=== PATIENT | female | born 1960 | race Caucasian/White ===

== ENCOUNTER 2019-05-11 13:55 | Emergency (ER) | payer MEDICARE, OTHER ==
[~2019-05-11] VITALS: Ht 160 cm; Wt 77.6 kg
[~2019-05-11 13:55] MED LIST: ALBU90OI; ALBU90OI INH; Bactrim Ds Tab1 EACH PO; DOXY100 PO; HYDACE5 PO; HYDGUAL120 PO; LEVSOD100; METPRE4DP PO; MULVITMINE; Norco 5-325 Ta1 EACH PO; OMEP20ER; PRAV20; PROM25 PO; Permethrin60 GM TP; RXHYDGUAS PO; RXSULTRIDS PO; SULTRIDS PO; THEO200ERB; ZINC50TA2; Zofran Odt4 MG SL; Zofran4 MG PO
[2019-05-11 15:11] LABS: BASOPHILS ABSOLUTE AUTO 0.05 K/mm3 (0.00-0.23); BASOPHILS PERCENT AUTO 0 % (0-2); EOSINOPHILS ABSOLUTE AUTO 0.37 K/mm3 (0.00-0.68); EOSINOPHILS PERCENT AUTO 3 % (0-6); Hematocrit 47.4 % (33.0-51.0); Hemoglobin 15.3 g/dL (11.5-16.0); IMMATURE GRAN ABSOLUTE AUTO 0.02 K/mm3 (0.00-0.10); IMMATURE GRAN PERCENT AUTO 0 % (0-1); LYMPHOCYTES ABSOLUTE AUTO 3.82 K/mm3 (0.84-5.20); LYMPHOCYTES PERCENT AUTO 32 % (21-46); MONOCYTES ABSOLUTE AUTO 0.64 K/mm3 (0.16-1.47); MONOCYTES PERCENT AUTO 5 % (4-13); Mean Corpuscular HGB 29.3 pg (26.0-34.0); Mean Corpuscular HGB Conc 32.3 g/dL (31.5-36.5); Mean Corpuscular Volume 91 fL (80-100); Mean Platelet Volume 11.9 fL (9.1-12.4); NEUTROPHILS ABSOLUTE AUTO 7.18 K/mm3 (1.96-9.15); NEUTROPHILS PERCENT AUTO 59 % (41-73); Platelet Count 206 K/mm3 (150-400); RDW Standard Deviation 43.8 fL (35.1-46.3); Red Blood Cell Count 5.23 M/mm3 (3.80-5.20); White Blood Cell Count 12.08 K/mm3 (4.00-11.30)
[2019-05-11 15:34] LABS: Alanine Aminotransfer (ALT/SGP 14 U/L (12-78); Albumin, Blood 4.1 g/dL (3.4-5.0); Albumin/Globulin Ratio 1.1 (0.8-1.8); Alk Phos 97 U/L (50-136); Anion Gap 5 mmol/L (6-16); Aspartate Aminotrans (AST/SGOT 14 U/L (12-37); Bilirubin, Total 0.4 mg/dL (0.1-1.0); Blood Urea Nitrogen 16 mg/dL (8-24); Bun/Creatinine Ratio 19.7 (12.0-20.0); CO2, Blood 27 mmol/L (21-32); Calcium, Blood 9.3 mg/dL (8.5-10.1); Chloride, Blood 110 mmol/L (98-108); Creatinine, Blood 0.81 mg/dL (0.40-1.00); Globulin, Blood 3.7 g/dL (2.2-4.0); Glomerular Filtration Rate >60 (60-); Glucose, Blood 101 mg/dL (70-99); Sodium, Blood 142 mmol/L (136-145); Total Protein, Blood 7.8 g/dL (6.4-8.2); Troponin I <0.015 ng/mL (0.000-0.040)
[2019-05-11] MEDS ORDERED: TELM40 PO (17:17)
[2019-05-13] MEDS ORDERED: MOTION RELIEF25 MG PO (15:15)
== END 2019-05-11 17:37 | disposition home or self-care (01) ==
LOC: ER 13:55
PROVIDERS: Physician Assistant
DX: I10 Essential (primary) hypertension (principal); R55 Syncope and collapse; E11.9 Type 2 diabetes mellitus without complications; Z88.0 Allergy status to penicillin; Z88.1 Allergy status to other antibiotic agents; Z88.5 Allergy status to narcotic agent; Z79.899 Other long term (current) drug therapy
CPT/HCPCS: 36415; 71046; 80053; 84484; 85025; 93005; 93010; 96361; 96374; 99284-25; J7030

== ENCOUNTER 2019-07-14 11:01 | Inpatient (IN) | payer MEDICARE, OTHER ==
[~2019-07-14] VITALS: Ht 160 cm; Wt 73.0 kg
[~2019-07-14 11:01] MED LIST changes: +MOTION RELIEF25 MG PO; +TELM40 PO
[2019-07-14 11:44] LABS: BASOPHILS ABSOLUTE AUTO 0.05 K/mm3 (0.00-0.23); BASOPHILS PERCENT AUTO 0 % (0-2); EOSINOPHILS ABSOLUTE AUTO 0.17 K/mm3 (0.00-0.68); EOSINOPHILS PERCENT AUTO 1 % (0-6); Hematocrit 47.7 % (33.0-51.0); Hemoglobin 15.7 g/dL (11.5-16.0); IMMATURE GRAN ABSOLUTE AUTO 0.04 K/mm3 (0.00-0.10); IMMATURE GRAN PERCENT AUTO 0 % (0-1); LYMPHOCYTES ABSOLUTE AUTO 3.27 K/mm3 (0.84-5.20); LYMPHOCYTES PERCENT AUTO 25 % (21-46); MONOCYTES ABSOLUTE AUTO 0.59 K/mm3 (0.16-1.47); MONOCYTES PERCENT AUTO 5 % (4-13); Mean Corpuscular HGB 29.5 pg (26.0-34.0); Mean Corpuscular HGB Conc 32.9 g/dL (31.5-36.5); Mean Corpuscular Volume 90 fL (80-100); Mean Platelet Volume 11.8 fL (9.1-12.4); NEUTROPHILS ABSOLUTE AUTO 8.93 K/mm3 (1.96-9.15); NEUTROPHILS PERCENT AUTO 68 % (41-73); Platelet Count 187 K/mm3 (150-400); RDW Coefficient Variation 12.9 % (11.7-14.2); RDW Standard Deviation 42.7 fL (35.1-46.3); Red Blood Cell Count 5.32 M/mm3 (3.80-5.20); White Blood Cell Count 13.05 K/mm3 (4.00-11.30)
[2019-07-14 11:56] LABS: Alanine Aminotransfer (ALT/SGP 13 U/L (12-78); Albumin, Blood 3.8 g/dL (3.4-5.0); Albumin/Globulin Ratio 0.9 (0.8-1.8); Alk Phos 96 U/L (50-136); Anion Gap 8 mmol/L (6-16); Aspartate Aminotrans (AST/SGOT 15 U/L (12-37); Bilirubin, Total 0.6 mg/dL (0.1-1.0); Blood Urea Nitrogen 16 mg/dL (8-24); Bun/Creatinine Ratio 22.3 (12.0-20.0); CO2, Blood 25 mmol/L (21-32); Calcium, Blood 9.4 mg/dL (8.5-10.1); Chloride, Blood 108 mmol/L (98-108); Creatinine, Blood 0.72 mg/dL (0.40-1.00); Globulin, Blood 4.1 g/dL (2.2-4.0); Glomerular Filtration Rate >60 (60-); Glucose, Blood 118 mg/dL (70-99); Sodium, Blood 141 mmol/L (136-145); Total Protein, Blood 7.9 g/dL (6.4-8.2)
[2019-07-14 12:05] LABS: Free Thyroxine 1.16 ng/dL (0.70-1.60); Magnesium, Blood 1.8 mg/dL (1.6-2.4)
[2019-07-14 12:07] LABS: Thyroid Stimulating Hormone 0.66 uIU/mL (0.360-4.800)
[2019-07-14 13:56] LABS: Source, Urine Clean Catch
[2019-07-14 13:59] LABS: Bilirubin, Urine Neg (Neg); Blood, Urine 2+ (Neg); Glucose Qualitative, Urine Neg (Neg); Ketones, Urine Neg (Neg); Leukocyte Esterase, Urine 1+ (Neg); Nitrite, Urine Pos (Neg); Protein, Urine Neg (Neg); Urobilinogen, Urine NORM (Normal)
[2019-07-14 14:20] LABS: Appearance, Urine Hazy (Clear); Color, Urine Yellow (P-Yellow)
[2019-07-14 14:22] LABS: Bacteria Many /hpf; Red Blood Cells, Urine 0-2 /hpf (0-2); Squamous Epithelial Cells Few /hpf (Few)
[2019-07-14] MEDS ORDERED: METOPROLOL TART25 MG PO (14:22)
[2019-07-14] MEDS ORDERED: PROAIR RESPICL90 MCG INH (15:56)
[2019-07-14] MEDS ORDERED: TRIA15CR3 TOP (15:57)
--- NOTE | 2019-07-14 18:14 | NUR ---
1535 PT ADMITTED TO MEDICAL FLOOR VIA [facility], SLIDE TRANSFERED WITH FOUR STAFF. A&OX4, GHISLAINE, PT REPORTS MILD R SIDED H/A AND MILD DIZZINESS THAT INCREASES WITH MOVEMENT. NO FACIAL DEFICITS, FINISHED GOODS PLANNER AND LEG STRENGTH EQUAL, SPEECH CLEAR AND NON GARBLED. MD AT BEDSIDE AT TIME OF ADMIT.
--- NOTE | 2019-07-15 00:51 | NUR ---
0030 PT STATES SHE HAS NOT ATE SINCE SUNDAY. PT STATES SHE WOULD APPRECIATE SPEECH EVAL YAMIL SO DECISON ON NPO STATUS CAN BE MADE.
--- NOTE | 2019-07-15 04:41 | NUR ---
SUMMARY PT COMPLAINT IS BEING HUNGRY AND BEING NPO. PT REQUESTED TO HAVE [facility] DONE [facility] TO HAVE NPO STATUS EVALUATED. PT HAD NO OTHER COMPLAINTS. PT HAS BEEN SLEEPING WELL. PT CURRENTLY SLEEPING AND BREATHING IN NO DISTRESS. CALL LIGHT IN REACH.
[2019-07-15 05:22] LABS: Hematocrit 44.3 % (33.0-51.0); Hemoglobin 14.4 g/dL (11.5-16.0); Mean Corpuscular HGB 29.1 pg (26.0-34.0); Mean Corpuscular HGB Conc 32.5 g/dL (31.5-36.5); Mean Corpuscular Volume 90 fL (80-100); Mean Platelet Volume 11.6 fL (9.1-12.4); Platelet Count 178 K/mm3 (150-400); RDW Coefficient Variation 12.8 % (11.7-14.2); RDW Standard Deviation 42.5 fL (35.1-46.3); Red Blood Cell Count 4.94 M/mm3 (3.80-5.20); White Blood Cell Count 10.97 K/mm3 (4.00-11.30)
[2019-07-15 05:45] LABS: Anion Gap 8 mmol/L (6-16); Blood Urea Nitrogen 16 mg/dL (8-24); Bun/Creatinine Ratio 23.1 (12.0-20.0); CHOL/HDL RATIO 7.7; CO2, Blood 24 mmol/L (21-32); Calcium, Blood 8.6 mg/dL (8.5-10.1); Chloride, Blood 111 mmol/L (98-108); Cholesterol 263 mg/dL (50-200); Creatinine, Blood 0.69 mg/dL (0.40-1.00); Glomerular Filtration Rate >60 (60-); Glucose, Blood 89 mg/dL (70-99); HDL Cholesterol 34 mg/dL (>39); LDL/HDL RATIO 5.4; Low Density Lipoprotein Chol 185 mg/dL (0-110); Magnesium, Blood 1.8 mg/dL (1.6-2.4); Potassium, Blood 3.5 mmol/L (3.5-5.5); Sodium, Blood 143 mmol/L (136-145); Triglycerides 221 mg/dL (30-160); Very Low Density Lipoprot Chol 44 mg/dL (6-32)
--- NOTE | 2019-07-15 06:42 | NUR ---
0635 PT REPORTS SUDDEN DIZZINESS WITH FEELING OF PASSING OUT. PT ALSO STATES SHE HAD A SHORT PERIOD OF PANIC. SX'S RESOLVED MOSTLY WITH SOME DIZZINESS REMAINING W/ HEADACHE. PT TX PER EMAR. PT NEURO'S INTACT NO DEFICITS NOTED.
--- NOTE | 2019-07-15 14:43 | NUR ---
Echocardiogram using 9.0ml of agitated saline contrast performed.
--- NOTE | 2019-07-15 15:02 | NUR ---
Advance Directive education/spiritual care visit conducted. Upon receiving an admit referral for Advance Directive (AD) education, I visit patient. Patient has genuine interest and asks questions. I provide an AD booklet and go over the sections in the AD and explain the filing process. Patient displays comprehension and states that she will go over the AD with her daughter. I also address patient's spiritual needs and discuss patient's emotional and spiritual status in light of going through her medical issues. Patient allows for prayer and emotional support. I will continue to remain available to patient and family.
--- NOTE | 2019-07-15 15:46 | NUR ---
SHIFT SUMMARY. A&OX4, SBA TO BATHROOM, GHISLAINE. NEURO ASSESSMENT WNL. PT CONTINUES WITH INTERMITTENT DIZZINESS THAT INCORPORATES R ORBITAL H/A AND NAUSEA, SYMPTOMS INCREASES WITH CHANGE IN POSITION, ESPESCIALLY SITTING TO STANDING. SYMPTOMS MANAGED WELL WITH CURRENT ORDERS. MRI HEAD COMPLETED TODAY, PT TOLERATED WELL. PT DENIES SOB, LUNGS CLEAR. TELE SINUS ERINN AT TIMES. NO OTHER CHANGES OR CONCERNS.
[2019-07-16 04:59] LABS: BASOPHILS ABSOLUTE AUTO 0.05 K/mm3 (0.00-0.23); BASOPHILS PERCENT AUTO 1 % (0-2); EOSINOPHILS ABSOLUTE AUTO 0.34 K/mm3 (0.00-0.68); EOSINOPHILS PERCENT AUTO 3 % (0-6); Hematocrit 41.9 % (33.0-51.0); Hemoglobin 13.7 g/dL (11.5-16.0); IMMATURE GRAN ABSOLUTE AUTO 0.03 K/mm3 (0.00-0.10); IMMATURE GRAN PERCENT AUTO 0 % (0-1); LYMPHOCYTES PERCENT AUTO 34 % (21-46); MONOCYTES ABSOLUTE AUTO 0.58 K/mm3 (0.16-1.47); MONOCYTES PERCENT AUTO 5 % (4-13); Mean Corpuscular HGB 29.5 pg (26.0-34.0); Mean Corpuscular HGB Conc 32.7 g/dL (31.5-36.5); Mean Corpuscular Volume 90 fL (80-100); NEUTROPHILS PERCENT AUTO 56 % (41-73); Platelet Count 160 K/mm3 (150-400); RDW Coefficient Variation 12.7 % (11.7-14.2); RDW Standard Deviation 42.2 fL (35.1-46.3); Red Blood Cell Count 4.65 M/mm3 (3.80-5.20)
--- NOTE | 2019-07-16 05:10 | NUR ---
SHIFT SUMMARY- PT. A&OX4, SBA, CALLS APPROPRIATELY. PT. HAD AN EPISODE OF DIZZINESS LAST NIGHT AFTER RETURNING FROM THE BATHROOM WHILE SITTING IN BED. MECLIZINE GIVEN PER EMAR AND ALSO ZOFRAN PER PT. REQUEST. PT. STATED GOOD EFFECT. DENIED ANY PAIN OR DISCOMFORT T/O THE SHIFT. PT. APPEARS TO BE RESTING COMFORTABLY IN BED. NO APPARENT DISTRESS NOTED. CALL LIGHT WIHTIN REACH AND SIDE RAILS UP X2. WILL CONT TO MONITOR.
[2019-07-16 05:32] LABS: Alanine Aminotransfer (ALT/SGP 14 U/L (12-78); Albumin, Blood 3.3 g/dL (3.4-5.0); Alk Phos 78 U/L (50-136); Anion Gap 8 mmol/L (6-16); Aspartate Aminotrans (AST/SGOT 9 U/L (12-37); Bilirubin, Total 0.4 mg/dL (0.1-1.0); Blood Urea Nitrogen 24 mg/dL (8-24); Bun/Creatinine Ratio 24.7 (12.0-20.0); CO2, Blood 25 mmol/L (21-32); Calcium, Blood 8.9 mg/dL (8.5-10.1); Chloride, Blood 107 mmol/L (98-108); Creatinine, Blood 0.97 mg/dL (0.40-1.00); Globulin, Blood 3.3 g/dL (2.2-4.0); Glomerular Filtration Rate >60 (60-); Glucose, Blood 104 mg/dL (70-99); Sodium, Blood 140 mmol/L (136-145); Total Protein, Blood 6.6 g/dL (6.4-8.2)
[2019-07-16] MEDS ORDERED: ASPI81CH PO (11:50)
[2019-07-16] MEDS ORDERED: ATOR20 PO (11:51)
[2019-07-16] MEDS ORDERED: LEVFLO500 PO (11:51)
[2019-07-16] MEDS ORDERED: MECL25 PO (11:51)
--- NOTE | 2019-07-16 12:43 | NUR ---
DISCHARGE PT IS A/O X4, GHISLAINE, CENTRAL OFFICE FRAME WIRER/DORSIFLEX STRONG/=, SHE STATE NO N/T EXTRMITIES, ABLE TO FOLLOW ALL COMMANDS. SHE IS UP IND, STATE MINOR DIZZINESS HOWEVER NO VERTIGO THIS AM. DR GÓMEZ IN TO ASSESS HER, STATE SHE MAY GO HOME TODAY, PT STATE FEELS READY FOR D/C, DR PROVIDE ORDERS. IV LEVAQUIN GIVEN PRIOR TO D/C THEN IV D/C'D INTACT. SCRIPTS FAXED TO [facility]/REQUEST. D/C INSTRUCT PROVIDE W EMPHASIS ON NEW MEDS, STROKE PREVENTION/SIGNS&SYMPTOMS. SHE IS PLEASANT/APPRECIATIVE. HER DAUGHTER WILL PROVIDE TRANSPORT HOME.
== END 2019-07-16 13:15 | disposition home or self-care (01) | DRG 66 ==
LOC: ER 11:01 → MEDS 14:08 → ER 15:30 → MEDS 15:35 → ENPENDDIS 07-16 11:00 → MEDS 07-16 13:15
PROVIDERS: Emergency Medicine; Internal Medicine; ADMIT Internal Medicine
DX: I63.541 Cerebral infarction due to unspecified occlusion or stenosis of right cerebellar artery (principal); I10 Essential (primary) hypertension; E11.9 Type 2 diabetes mellitus without complications; E66.9 Obesity, unspecified; E78.5 Hyperlipidemia, unspecified; Z68.30 Body mass index [BMI] 30.0-30.9, adult; F17.210 Nicotine dependence, cigarettes, uncomplicated
CPT/HCPCS: 36415; 70450; 70498; 70551; 80048; 80053; 80061; 81001; 82947; 83036; 83735; 84439; 84443; 85025; 85027; 87077; 87086; 87186; 92610; 93005; 93010; 93306; 96361; 96374; 96375; 97110; 97162; 97166; 97530; 99285-25; A9270-GY; J1200; J1650; J1885; J1956; J2060; J2405; J2765; J7030; Q9967

== ENCOUNTER 2021-08-30 08:10 | Day surgery (SDC) | payer MEDICARE, OTHER ==
[~2021-08-30] VITALS: Ht 162.6 cm; Wt 87.0 kg
[~2021-08-30 08:10] MED LIST changes: +AMOCLA875 PO; +ASPI81CH PO; +ATOR20 PO; +Aspir 8181 MG PO; +CILO100 PO; +DIAZ5 PO; +FAMO40 PO; +FLUT.05NI; +LEVFLO500 PO; +LIOT25 PO; +MECL25 PO; +METOPROLOL TART25 MG PO; +OMEP20ER PO; +PANT20 PO; +PROAIR RESPICL90 MCG INH; +TIZA4 PO; +TRIA15CR3 TOP; +ZYRTEC10 M2 PO
--- NOTE | 2021-08-30 14:29 | NUR ---
PT AMBULATES TO RESTROOM AND BACK WITHOUT DIFF., PT R RADIAL TR BAND REMAINS IN PLACE AND R FEMROAL SITE REMAINS CLEAR. WILL CONTINUE TO MONITOR
--- NOTE | 2021-08-30 15:30 | NUR ---
ALL AIR REMOVED FROM R RADIAL TR BAND. NO BLEEDING OR HEMATOMA NOTED. PT VERBALIZES UNDERSTANDING VERBAL AND WRITTEN INSTRUCTIONS.
--- NOTE | 2021-08-30 16:22 | NUR ---
patient verbalized understyanding of discharge instructions and precautions. no further questons. Tr band removed from right radial site. Right radial site soft and nontender, no hematoma, no bleeding. Wrist board placed to right wrist. Right femoral artery site soft and nontender, no hematoma, no bleeding, dressing D&I. IV site dced with catheter intact. patient transferred by wheelchair to waiting car. Boyfriend driving.
== END 2021-08-30 16:20 | disposition home or self-care (01) ==
LOC: MHTC 08:10
DX: K55.1 Chronic vascular disorders of intestine (principal); I87.2 Venous insufficiency (chronic) (peripheral); I83.811 Varicose veins of right lower extremity with pain; I10 Essential (primary) hypertension; F17.210 Nicotine dependence, cigarettes, uncomplicated; Z88.5 Allergy status to narcotic agent; Z88.0 Allergy status to penicillin
CPT/HCPCS: 36245; 75625; 75726; 76937; 99152; 99153; A9270; C1725; C1760; C1769; C1887; C1894; C1895; J0360; J1644; J2250; J2405; J3010; J7030; J7040; Q9967

== ENCOUNTER → 2021-11-18 | Day surgery (SDC) | payer MEDICARE, OTHER ==
[~2021-11-18] VITALS: Ht 162.6 cm; Wt 93.6 kg
--- NOTE | 2021-11-18 13:50 | NUR ---
25 MCG [place] GIVEN FOR RIGHT SHOULDER PAIN PER DR AL ORDER.
--- NOTE | 2021-11-18 15:00 | NUR ---
TR BAND FULLY DEFLATED. NO BLEEDING NOTED. SITE SOFT AND NON-TENDER PER PT. FEMORAL SITE SOFT AND NON-TENDER PER PT.
--- NOTE | 2021-11-18 15:35 | NUR ---
PT SITTING UP IN CHAIR AT BEDSIDE. R RADIAL AND GROIN SITE SOFT AND NON-TENDER. NO BLEEDING NOTED.
--- NOTE | 2021-11-18 16:11 | NUR ---
PT CO N/V AND ABD CRAMPING. DR DICK MADE AWARE AND IS OK TO PROCEED W/ DC. PT TO RECEIVE SCRIPT FOR PO ZOFRAN PER DR DICK. PT GIVEN DC INSTRUCTIONS AND VERBALIZED UNDERSTANDING. PT AMBULATED TO RESTROOM. GROIN SITE SOFT AND NON-TENDER PER PT. TR BAND REMOVED AND CLOTH DOT PLACED. ARM BOARD AND SLING APPLIED. PT CHANGED INTO CLOTHES. IV OUT. PT CALLED BOYFRIENShahrzad [facility] FOR RIDE HOME. R RADIAL SITE SOFT AND NON-TENDER PER PT. NO BLEEDING FROM EITHER SITE NOTED.
--- NOTE | 2021-11-18 16:36 | NUR ---
PT CO SMALL AMOUNT OF RED BLOOD IN STOOL. DR DICK MADE AWARE AND IS OK TO PRCEED W/ DC. PT TAKEN TO Y VIA . MIC [facility]ORRES TO DRIVE PT HOME.
== END ==
LOC: MHTC 11-16 08:30
DX: K55.069 Acute infarction of intestine, part and extent unspecified (principal); R60.0 Localized edema; R25.2 Cramp and spasm; I10 Essential (primary) hypertension; E78.00 Pure hypercholesterolemia, unspecified; E03.9 Hypothyroidism, unspecified; K21.9 Gastro-esophageal reflux disease without esophagitis; I25.10 Atherosclerotic heart disease of native coronary artery without angina pectoris; J45.909 Unspecified asthma, uncomplicated; F17.210 Nicotine dependence, cigarettes, uncomplicated; Z88.0 Allergy status to penicillin; Z88.5 Allergy status to narcotic agent; Z88.1 Allergy status to other antibiotic agents
CPT/HCPCS: 76937; 99152; 99153; A9270; C1725; C1760; C1769; C1876; C1887; C1894; J0360; J1644; J2250; J2405; J2997; J3010; J7030; J7040; Q9967

== ENCOUNTER 2021-11-19 06:15 | Emergency (ER) | payer MEDICARE, OTHER ==
[~2021-11-19] VITALS: Ht 162.6 cm; Wt 88.3 kg
[2021-11-19 07:30] LABS: Hematocrit 44.9 % (33.0-51.0); Hemoglobin 14.7 g/dL (11.5-16.0); Mean Corpuscular HGB 30.2 pg (26.0-34.0); Mean Corpuscular HGB Conc 32.7 g/dL (31.5-36.5); Mean Corpuscular Volume 92 fL (80-100); Mean Platelet Volume 12.7 fL (9.1-12.4); Platelet Count 166 K/mm3 (150-400); RDW Coefficient Variation 13.1 % (11.7-14.2); RDW Standard Deviation 44.5 fL (35.1-46.3); Red Blood Cell Count 4.86 M/mm3 (3.80-5.20); White Blood Cell Count 32.46 K/mm3 (4.00-11.30)
[2021-11-19 08:04] LABS: BAND PERCENT MAN 4 % (0-8); BASOPHILS PERCENT MAN 0 % (0-2); EOSINOPHILS ABSOLUTE MAN 0.32 K/mm3 (0.00-0.68); EOSINOPHILS PERCENT MAN 1 % (0-6); LYMPHOCYTES ABSOLUTE MAN 0.97 K/mm3 (0.84-5.20); LYMPHOCYTES PERCENT MAN 3 % (21-46); MONOCYTES ABSOLUTE MAN 1.62 K/mm3 (0.16-1.47); MONOCYTES PERCENT MAN 5 % (4-13); NEUTROPHILS ABSOLUTE MAN 30.18 K/mm3 (1.96-9.15); SEG NEUTROPHILS PERCENT MAN 89 % (41-73); TOTAL CELLS COUNTED 200
[2021-11-19 08:09] LABS: Albumin, Blood 4.2 g/dL (3.4-5.0); Bilirubin, Total 0.9 mg/dL (0.1-1.0); Bun/Creatinine Ratio 22.2 (12.0-20.0); Creatinine, Blood 0.81 mg/dL (0.40-1.00); Globulin, Blood 4.3 g/dL (2.2-4.0); Potassium, Blood 5.4 mmol/L (3.5-5.5); Total Protein, Blood 8.5 g/dL (6.4-8.2)
[2021-11-19 09:16] LABS: Anti-Xa UFH, PHA Monitoring <0.10 IU/mL
== END 2021-11-19 11:41 | disposition home or self-care (01) ==
LOC: ER 06:15
PROVIDERS: Emergency Medicine
DX: K55.069 Acute infarction of intestine, part and extent unspecified (principal); K55.9 Vascular disorder of intestine, unspecified; E11.9 Type 2 diabetes mellitus without complications; I10 Essential (primary) hypertension; Z88.0 Allergy status to penicillin; Z88.5 Allergy status to narcotic agent; Z88.8 Allergy status to other drugs, medicaments and biological substances; Z79.899 Other long term (current) drug therapy; Z79.82 Long term (current) use of aspirin
CPT/HCPCS: 71045; 74174; 80053; 83605; 83690; 84484; 85025; 85520; 85730; 93005; 93010; J1170; J1644; J2405; J2543; J3010; Q9967